=== PATIENT | male | born 1965 | race Caucasian/White ===

== ENCOUNTER 2019-02-24 06:42 | Day surgery (SDC) | payer OTHER ==
[2019-02-24] MEDS ORDERED: Lactated Ringers 1,000 ML IV SCH (07:00)
[2019-02-24] MEDS ORDERED: Propofol 200 MG/20 ML SDV ONE ×2 (07:25→07:59)
[2019-02-24] MEDS ORDERED: Midazolam 1 MG/ML 2 ML SDV ONE (07:25)
[2019-02-24] MEDS ORDERED: fentaNYL 100 MCG/2 ML SDV ONE (07:25)
[2019-02-24] MEDS ORDERED: Lidocaine 1% 2 ML ONE (08:39)
[2019-02-24 09:49] VITALS: BP 130/78
--- NOTE | 2019-02-27 09:02 | OR ---
DATE OF PROCEDURE: 02/24/2019 PREOPERATIVE DIAGNOSIS: History of adenomatous colon polyps. POSTOPERATIVE DIAGNOSES: 1. Diverticulosis. 2. History of adenomatous colon polyps. PROCEDURE: Colonoscopy to the cecum. SURGEON: Moses Jernigan MD ANESTHESIA: IV anesthesia with monitored anesthesia care. INDICATION: This 53-year-old white male is here for a colonoscopy. He has a history of adenomatous colon polyps. His last colonoscopic exam, he says, was done 3 years ago. I counseled him for the procedure, including risks and alternatives, and he gave his informed consent to proceed. DESCRIPTION OF PROCEDURE: The patient was placed in a left lateral decubitus position. IV anesthesia was administered by the Anesthesia Service. Time-out was held. A rectal exam was performed, which was unremarkable. The flexible video Olympus colonoscope was introduced through his anus, up his rectum and out his colon all the way to the cecum. En route, we saw multiple left-sided diverticula. There was no bleeding or inflammation associated with any of them. Once the cecum was reached, the scope was slowly withdrawn examining the mucosa throughout. No additional mucosal abnormalities were noted. No neoplastic lesions were seen. The scope was retroflexed in the rectum with the distal rectum appearing unremarkable. The scope was straightened and removed. He tolerated the procedure well. Moses Jernigan MD /[id number]
== END 2019-02-24 09:45 | disposition home or self-care (01) ==
LOC: JP.SDS 06:42
PROVIDERS: ATTEND Surgery
DX: Z12.11 Encounter for screening for malignant neoplasm of colon (principal); K57.30 Diverticulosis of large intestine without perforation or abscess without bleeding; I10 Essential (primary) hypertension; E11.9 Type 2 diabetes mellitus without complications; E78.00 Pure hypercholesterolemia, unspecified; Z88.8 Allergy status to other drugs, medicaments and biological substances; Z88.2 Allergy status to sulfonamides; Z86.010 Personal history of colon polyps
CPT/HCPCS: 45378; J2001; J2250; J2704; J3010; J7120

== ENCOUNTER 2023-04-30 07:56 | Day surgery (SDC) | payer OTHER ==
[2023-04-30] MEDS ORDERED: fentaNYL 50 MCG/ML SDV ONE (08:00)
[2023-04-30] MEDS ORDERED: Midazolam 1 MG/ML 2 ML SDV ONE (08:00)
[2023-04-30] MEDS ORDERED: Propofol 200 MG/20 ML SDV ONE ×2 (08:00→09:32)
[2023-04-30] MEDS ORDERED: Sodium Chloride 0.9% 1,000 ML IV SCH (08:30)
[2023-04-30 10:57] VITALS: BP 123/81; PULSE 72
== END 2023-04-30 11:00 | disposition home or self-care (01) ==
LOC: JP.SDS 07:56
PROVIDERS: ATTEND Surgery
DX: Z12.11 Encounter for screening for malignant neoplasm of colon (principal); K57.30 Diverticulosis of large intestine without perforation or abscess without bleeding; K64.4 Residual hemorrhoidal skin tags; K64.8 Other hemorrhoids; K63.5 Polyp of colon; K62.3 Rectal prolapse; K62.89 Other specified diseases of anus and rectum; E78.5 Hyperlipidemia, unspecified; E11.9 Type 2 diabetes mellitus without complications; E66.9 Obesity, unspecified; Z88.2 Allergy status to sulfonamides; Z88.8 Allergy status to other drugs, medicaments and biological substances
CPT/HCPCS: 45380; 88305; J2250; J2704; J3010; J7030